=== PATIENT | male | born 1975 | race Hispanic/Latino ===

== ENCOUNTER → 2020-01-16 | Outpatient (CLI) | payer BC | LOC: WCC 11:15 | PROVIDERS: ATTEND Family Medicine Adult Medicine | DX: E11.628 Type 2 diabetes mellitus with other skin complications (principal); S81.802A Unspecified open wound, left lower leg, initial encounter; W45.8XXA Other foreign body or object entering through skin, initial encounter | CPT/HCPCS: 36415; 82948 ==

== ENCOUNTER → 2020-01-16 | Outpatient (CLI) | payer BC ==
--- NOTE | 2020-01-16 13:55 | Diagnostic Imaging Report ---
Exam: Left leg 2 views Clinical History: Open wound of left leg Findings: There is no evidence of acute fracture or malalignment. The articular joints are well-preserved. Soft tissue defect is noted in the anterior aspect of the left lower leg without evidence of foreign body or bone involvement.. Impression: No radiographic evidence of acute osseous injury or osteomyelitis. Signed by: Dr. Omid Messina MD on 01/16/2020 1:52 PM
== END ==
LOC: RAD 13:02
PROVIDERS: ATTEND Family Medicine Adult Medicine
DX: S81.802A Unspecified open wound, left lower leg, initial encounter (principal)

== ENCOUNTER → 2020-01-24 | Outpatient (CLI) | payer BC | LOC: WCC 12:32 | PROVIDERS: ATTEND Family Medicine Adult Medicine | DX: E11.628 Type 2 diabetes mellitus with other skin complications (principal); S81.802A Unspecified open wound, left lower leg, initial encounter; W45.8XXA Other foreign body or object entering through skin, initial encounter ==

== ENCOUNTER → 2020-01-28 | Outpatient (CLI) | payer BC ==
[~2020-01-28] MED LIST: LIDOCAINE/PRILOCAINE 2.5-2.5% KIT ONE
== END ==
LOC: WCC 15:39
PROVIDERS: ATTEND Family Medicine Adult Medicine
DX: E11.628 Type 2 diabetes mellitus with other skin complications (principal); S81.802A Unspecified open wound, left lower leg, initial encounter; W45.8XXA Other foreign body or object entering through skin, initial encounter

== ENCOUNTER → 2020-02-07 | Outpatient (CLI) | payer BC | LOC: WCC 09:42 | PROVIDERS: ATTEND Family Medicine Adult Medicine | DX: E11.628 Type 2 diabetes mellitus with other skin complications (principal); S81.802A Unspecified open wound, left lower leg, initial encounter; W45.8XXA Other foreign body or object entering through skin, initial encounter ==

== ENCOUNTER → 2020-02-21 | Outpatient (CLI) | payer BC | LOC: WCC 14:32 | PROVIDERS: ATTEND Family Medicine Adult Medicine | DX: E11.628 Type 2 diabetes mellitus with other skin complications (principal); S81.802A Unspecified open wound, left lower leg, initial encounter; W45.8XXA Other foreign body or object entering through skin, initial encounter ==

== ENCOUNTER → 2021-07-08 | Day surgery (SDC) | payer BC ==
[~2021-07-08] MED LIST changes: +FLOMAX0.4 MG PO; +LANTUS IJ; -LIDOCAINE/PRILOCAINE 2.5-2.5% KIT ONE; +LISPRO IJ; +METOCLOPRAMIDE10 MG PO
[2021-07-08 11:00] VITALS: BP 105/70
== END | disposition home or self-care (01) ==
LOC: OR 06:48
PROVIDERS: ATTEND Internal Medicine Gastroenterology
DX: K29.70 Gastritis, unspecified, without bleeding (principal); K31.1 Adult hypertrophic pyloric stenosis; K20.90 Esophagitis, unspecified without bleeding; K44.9 Diaphragmatic hernia without obstruction or gangrene; K31.84 Gastroparesis; K59.09 Other constipation; K57.30 Diverticulosis of large intestine without perforation or abscess without bleeding; K64.8 Other hemorrhoids; E11.9 Type 2 diabetes mellitus without complications; I10 Essential (primary) hypertension; Z01.810 Encounter for preprocedural cardiovascular examination; Z01.812 Encounter for preprocedural laboratory examination; Z20.822 Contact with and (suspected) exposure to COVID-19; Z79.4 Long term (current) use of insulin
CPT/HCPCS: 36415; 43239; 43245; 45378; 82948; 93005; C1726; U0002; 43450